=== PATIENT | male | born 1955 | race Caucasian/White ===

== ENCOUNTER → 2017-04-08 | Day surgery (SDC) | payer MEDICARE ==
[~2017-04-08] VITALS: Ht 172.7 cm; Wt 108.4 kg
[~2017-04-08] MED LIST: ASCO500C6 PO; CHOL100043 PO; FENT1PAT6 TRANSDERM; FERR324T5 PO; FLUT16SP NS; FUR20 PO; GABA600T2 PO; KLO1T PO; Lactated Ringer's 1,000 ML IV ONE; Lactated Ringer's 1,000 ML IV SCH; METO25TA6 PO; NABU750T PO; OXYC-466 PO; Ondansetron 2 mg/mL 2 mL Inj IVPUSH PRN; PARO20TA5 PO; Propofol 10,000 mCg/mL 20 mL Inj ONE; TRET40CR4 TP
[2017-04-08 08:54] VITALS: BP 159/91; PULSE 59; RESP 16; O2SAT 95
[2017-04-08 09:54] VITALS: BP 138/87; PULSE 57; RESP 14; O2SAT 99
[2017-04-08 10:05] VITALS: BP 176/81; PULSE 68; RESP 20; O2SAT 97
[2017-04-08 10:09] VITALS: BP 166/85; PULSE 63; RESP 14; O2SAT 95
--- NOTE | 2017-04-08 10:36 | ENDO ---
[address] [address] ENDOSCOPY PROCEDURE PATIENT: ANEL JOHNSON : 1955 MR#: [id number] ADMIT: 04/08/2017 JOB ID: [id number] DATE: 04/08/2017 PREOPERATIVE DIAGNOSIS(ES): Colorectal cancer. PREOPERATIVE DIAGNOSIS: Colorectal cancer screening. POSTOPERATIVE DIAGNOSIS(ES): 1. A 3 mm descending colon polyp. 2. Minimal sigmoid diverticulosis. OPERATION: Colonoscopy to cecum with cold forceps polypectomy. SURGEON: Teddy Cox M.D. INDICATIONS: A 62-year-old man who has a history of esophageal cancer. So far it appears to have been successfully treated. He is here for colorectal cancer screening. FINDINGS: He had a fair prep. The scope was advanced to the cecum with clear visualization of the appendiceal orifice and ileocecal valve. The appendiceal orifice was photographed. The scope was withdrawn over 9 minutes 44 seconds. Suction and irrigation used as necessary. A 2-3 mm polyp was identified in the descending colon and removed with cold forceps. There was no evidence of post polypectomy bleeding. Retroflexed views of the rectum were normal. DESCRIPTION OF PROCEDURE: Sedation was provided by Dr. Yuri Villegas from anesthesia. A digital rectal examination was performed. Then, the Olympus PCF H 180 AL video colonoscope was passed transanally, advanced to the cecum, withdrawn with results of procedures as discussed above. The patient tolerated the procedure well. There were no apparent complications. RECOMMENDATIONS: Repeat colonoscopy in five years.
--- NOTE | 2017-04-08 11:12 | PCM.HPANE ---
Patient Data Surgeon Admitting Provider: Attending Provider:Teddy Cox MD Primary Care Physician:Margareth Bolden MD Other Provider:Tawny Dior Anesthesia Reason for Visit Colon Cancer Screeing Ht/WT & BMI Height (Feet): 5 Height (Inches): 8 Weight (Kilograms): 108.41 Body Mass Index 36.00 Allergies Coded Allergies: Penicillins (Verified Allergy, Severe, Rash, 04/06/17) Sulfa (Sulfonamide Antibiotics) (Verified Allergy, Severe, Rash,Itching,, 04/06/17) niacin (Verified Allergy, Severe, Hives, 04/06/17) simvastatin (Verified Allergy, Severe, muscle pain, 04/06/17) diazepam (Verified Allergy, Mild, sleepy, 04/06/17) pt had it combined with clonazepam fenofibrate (Verified Adverse Reaction, Intermediate, flu like symptoms, ) Uncoded Allergies: provatine (Allergy, Severe, Extrapyramidal Symptoms, 10/24/12) lock jaw Past Anesthesia History Anesthesia History: Denies:: Abnormal Airway, Anesthesia Reactions, Difficult Intubation, Fam Anesthesia Reaction, Fam Malignant Hypertherm, Malignant Hyperthermia Diabetes History Hx Diabetes?: No MRSA MRSA: No Medications Blood Thinner: Aspirin Last Dose Blood Thinner: Apr 08, 2017 Home Meds Incl Beta Héctor: Yes Date Beta Héctor Taken: Apr 08, 2017 Time Beta Héctor Taken: 0500 Reported Medications Metoprolol Tartrate 25 Mg Xzqcug35 Mg PO BID 30 Days Ref 0 04/06/17 Furosemide 20 Mg Tab20 Mg PO DAILY 30 Days Ref 0 04/06/17 Ferrous Gluconate 324 Mg Pgdbhg030 Mg PO DAILY Ref 0 04/06/17 Fentanyl 12.5 mcg/hr Patch 1 Each Patch.td721 Patch TRANSDERM Q3D Ref 0 11/09/16 Cholecalciferol (Vitamin D3) (Vitamin D)1,000 Unit Tablet1,000 Unit PO DAILY #1 BOTTLE Ref 0 06/10/16 Ascorbic Acid (Vitamin C)500 Mg Capsule.er500 Mg PO DAILY 06/10/16 Tretinoin/Emollient Base (Tretinoin 0.05% Emollient Crm)60 Gm Cream..g.60 Gm TP DAILY 06/10/16 oxyCODONE-Acetaminophen 10-325 mg 1 Each Tablet1 Tablet PO Q6H PRN For Pain Ref 0 06/10/16 Paroxetine 20 Mg Yqtyvg51 Mg PO HS 30 Days Ref 0 06/10/16 Nabumetone 750 Mg Yenpvb814 Mg PO TID 30 Days 06/10/16 Gabapentin 600 Mg Lgtxec312 Mg PO TID Ref 0 06/10/16 Fluticasone Propionate (Fluticasone Propionate Nasal)16 Gm [place].susp1 [place] NS BID #16 GM Ref 0 06/10/16 Clonazepam 1 Mg Tablet1 Mg PO BID PRN For Anxiety Ref 0 06/10/16 Discontinued Reported Medications [benadryl] No Conflict Check1 Mg PO DIRECTED PRN For Itching swish in mouth and spit 08/17/16 Metoclopramide 10 Mg Cmrpow37 Mg PO BID PRN For Nausea Ref 0 07/06/16 Ondansetron 8 Mg Tablet8 Mg PO TID NAUSEA 06/15/16 [phenergan ] No Conflict Check PO q4hrs PRN For Nausea 06/15/16 Zolpidem 10 Mg Qcfsoo76 Mg PO HS PRN For Insomnia Ref 0 06/10/16 Omeprazole 20 Mg Tablet.dr20 Mg PO DAILY 06/10/16 [place]-3 Acid Ethyl Esters (Lovaza)1 Gm Capsule1 Gm PO BID #30 CAPSULE Ref 0 06/10/16 Lisinopril 20 Mg Zyfgpg49 Mg PO DAILY 30 Days Ref 0 06/10/16 Hydrochlorothiazide 25 Mg Cxhqmr04 Mg PO DAILY 30 Days Ref 0 06/10/16 Bupropion ER 150 Mg Tablet.er150 Mg PO BID Ref 0 06/10/16 Atorvastatin (Lipitor)20 Mg Qrpndu34 Mg PO DAILY Ref 0 hold 06/10/16 History History of ENT Problems?: Yes HEENT History: Positive for:: Sinus Problem (SEASONAL ALLERGIES S/P SEPTOPLASTY) Denies:: Abnormal Airway Difficult Intubation Dysphagia Hearing Problem Denture Type: None Teeth Condition: Broken Teeth Hx of Heart Problems?: Yes Cardiovascular History: Positive for:: Hypertension Denies:: AICD Abdominal Aortic Aneurism Atrial Fibrillation Cardiac Surgery Chest Pain Congestive Heart Failure Coronary Artery Disease Edema Heart Murmur Irregular Heartbeat Pacemaker Peripheral Vascular Rheumatic Fever Thrombophlebitis Valvular Heart Disease Hx of Respiratory Problem?: Yes Respiratory History: Denies:: Asthma COPD Chest Surgery Cough Dyspnea Emphysema Hemoptysis Oxygen Administration Pneumonia Pulmonary Embolism Tuberculosis Use of C-PAP Machine (SNORES) Use of Inhalers / NEBS Hx Neurologic Problems?: Yes Neurological History: Denies:: CVA Dementia Multiple Sclerosis Parkinson's Disease Seizures Hx of GI Problems?: Yes Hx of Problems?: No Genitourinary History: Denies:: Kidney Stones Urinary Tract Infection HX of Peritoneal Dialysis: No Male Hx: Denies:: Prostate Problems Scrotal Mass Testicular Surgery Skin History: Positive for:: History Skin Disorders? (ACNE/ROSACEA) Denies:: Pressure Ulcers Hx Musculoskeletal Problems?: Yes Musculoskeletal History: Positive for:: Musculoskeletal Trauma (had right knee replacement scheduled/deferred due to Ca dx) Denies:: Fibromyalgia Joint Replacement Hx of Psycho/Social Problems?: Yes Psycho Social History: Positive for:: Anxiety Hx Depression Hx Surgeries?: Yes (KNEE, BACK, TONSILLECTOMY, APPY, HAM, ESOPHAGECTOMY) Hx Any Other Health Problems?: Yes Other History: Positive for:: Cancer (esophageal-) Denies:: Endocrine Disease Hospitalization Thyroid Disease History Blood Transfusions: Denies:: Blood Transfusions Hx Diabetes: No Hx Alcohol Use: NoHx Substance Use: Yes (marijuana) Smoking Status: Never Smoker Have You Smoked inLast 12 mo: No Stop/Bang Treated for Sleep Apnea?: No Do You Have a CPAP Machine?: No S-Snoring: Do You Snore Loudly: Yes T-Tired: feel tired, fatigued: Yes O-Obsered: Observed not breath: No P-Blood Pressure: treated: Yes B- Body Mass Index > 35 kg/m2: Yes A- Age over 50: Yes N- Neck Large Circumference: Yes G- Gender Male: Yes AUGUSTINE Total Score: 7 Risk Assessment Category Category 1A: Patient has history of documented sleep apnea, and HAS NOT received any narcotic, sedative or anesthesia administration during this stay. Category 1B: Patient has history of documented sleep apnea, and HAS received any narcotic , sedative or anesthesia administration during this stay Category 2: Patient has SUSPECTED Obstructive Sleep Apnea, and HAS received any narcotic , sedative or anesthesia administration during this stay. Category 3: Patient has SUSPECTED Obstructive Sleep Apnea and HAS NOT received narcotic, sedative or anesthesia administration during this stay. Category 4: Outpatient in Procedural Areas with known sleep apnea or who screen positive for High Risk via the STOP/BANG questionnaire. Exam Exam Vital Signs Vital Signs Date Time Temp Pulse Resp B/P Pulse Ox O2 Delivery O2 Flow Rate FiO2 9/7/17 08:54 59 16 159/91 95 Room Air General Appearance: Alert, Oriented X3, Cooperative, Mild Distress (chronic pain) HEENT/AIRWAY: MP 2, Neck Movement (FROM), Mouth Opening (3 fbmo) Lungs: Clear to Auscultation, Normal Air Movement Heart: Exam Unremarkable, Regular Rate/Rhythm, No Murmurs/Rubs/Gallops Plan Impression Patient chart reviewed, patient interviewed and anesthestic plan with risks, benefits, and alternatives discussed, and informed consent obtained. NPO per Anesth. Guidelines: Yes ASA Physical Status: ASA3 Plus Emergency Anesthetic Plan: GA, MAC Bene/Risks/Altern/Consents: Yes HP Complete Prior to Induction: Yes Woo Villegas MD Apr 08, 2017 09:15
--- NOTE | 2017-04-08 11:12 | PCM.ANEP1 ---
Post Anesthesia PACU Phase 1 Assessment Vital Signs Vital Signs Date Time Temp Pulse Resp B/P Pulse Ox O2 Delivery O2 Flow Rate FiO2 04/08/17 10:09 63 14 166/85 95 Room Air 04/08/17 10:05 68 20 176/81 97 Room Air 04/08/17 09:54 57 14 138/87 99 Simple Mask 6 04/08/17 08:54 59 16 159/91 95 Room Air Anesthetic Administered: GA, MAC Level of Alertness: Awake, talking CHASE's with Equal Strength: Yes Pain: Yes (baseline chronic pain) Nausea or Vomiting: No CV Function & Hydration Stable: Yes Airway Device: n/a Oxygen Delivery: Room Air Lungs: Clear to Auscultation, Normal Air Movement Dermatome Level: Full Sensation PACU Phase 2 Assessment Complications: No Follow up Care: N/A Patient Instructions Provided: N/A Woo Villegas MD Apr 08, 2017 11:12
--- NOTE | 2017-04-09 16:55 | PATH ---
SURGICAL PATHOLOGY Attending Physician:Raji Mercado CASE STATUS: Signed Out PATIENT NAME: ANEL JOHNSON PID: [id number] : 1955 DATE COLLECTED:04/08/2017 19:39 SPECIMEN: Colon, Polyp CLINICAL HISTORY: 1). DESCENDING POLYP FINAL DIAGNOSIS: Descending Colon Polyp, Biopsy: Hyperplastic polyp. ICD10: K63.5 GROSS DESCRIPTION: The specimen is received in one formalin filled container labeled with the patient's name, sublabeled "descending polyp" and consists of a 0.2 x 0.2 x 0.1 CM portion of tissue which is entirely submitted in one cassette. 04/08/2017DC ICD-9 CODES: CPT CODES: 1: 58964 Electronically Signed Out Campos Infante MD, Ph.D. [facility] Pathology [facility] [address], [place] [address] Technical component performed at [facility], [address] [place] [address] [address], [place], [address]
== END | disposition home or self-care (01) ==
LOC: END 01:03
PROVIDERS: ATTEND Surgery
DX: Z12.11 Encounter for screening for malignant neoplasm of colon (principal); K63.5 Polyp of colon; K57.30 Diverticulosis of large intestine without perforation or abscess without bleeding; Z85.01 Personal history of malignant neoplasm of esophagus; G47.00 Insomnia, unspecified; F42.9 Obsessive-compulsive disorder, unspecified; I10 Essential (primary) hypertension; F41.9 Anxiety disorder, unspecified; F32.9 Major depressive disorder, single episode, unspecified; E78.5 Hyperlipidemia, unspecified; G62.9 Polyneuropathy, unspecified; D64.9 Anemia, unspecified
CPT/HCPCS: 45380; 88305; J2704; J7120